=== PATIENT | female | born 1995 | race Caucasian/White ===

== ENCOUNTER 2023-06-23 16:52 | Emergency (ER) | payer OTHER ==
--- OUTSIDE RECORDS SUMMARY | 2023-06-23 16:56 | XMS REPORT | Continuity of Care Document ---
:1995 Author Organization [facility] t Address [address] [facility] [address] [place] [address] Care Team Providers Name Role Phone Asked, No Pcp Primary Care Physician Unavailable Corky Flores Attending Clinician Unavailable Saeed Robles MD Attending Clinician Physician, No Primary or Family Admitting Clinician Unavaila ble Payers Payer Name Policy Type Policy Number Effective Date Expiration Date [facility] [id number] 2016 Choice Medicaid 00:00:00 Problems Condition Condition Condition Status Onset Resolution Last Treating Co mments Source Name Details Category Date Date Treatment Clinician Date Disease Active [facility] [address] [facility] 00:00: [facility]osp[facility] 00 l Allergies, Adverse Reactions, Alerts Allergy Allergy Status Severity Reaction(s) Onset Inactive Treating Comm ents Source Name Type Date Date Clinician No Known DA Active [facility] [place] [facility] No Known DA Active [facility]ie 03-24 [place] 00:[facility] are [facility] Family History Family Member Diagnosis Comments Start Date Stop Date Source Natural mother [facility] Natural mother [facility] Paternal Miscarriages / [facility] Social History Social Habit Start Date Stop Date Quantity Comments Source History of tobacco Cigarette Smoker [facility] Exposure to Not sure [facility] SARS-CoV-2 (event) Hospit al Sexual orientation [facility] History of Social 2021-03-15 2021-03-[address] function 00:00:00 00:00:00 Hospital Alcohol intake 2017-10-21 2017-10-21 Current [facility] 00:00:00 00:00:00 non-drinker of Hospital alcohol (finding) Tobacco use and 2017-10-20 2017-10-20 Smokeless [facility] exposure 00:00:00 00:00:00 tobacco non-user Hospital Cigarettes smoked 2017-10-20 2017-10-[address] current (pack per 00:00:00 00:00:00 Hospita l day) - Reported Sex Assigned At [birth year] [facility] 00:00:00 00:00:00 [facility] Center Smoking Status Start Date Stop Date Source Ex-smoker 2017-10-20 00:00:00 2017-10-20 [facility] Medications Ordered Filled Start Stop Current Ordering Indication Dosage Frequency Signature Comments Components Source Medication Medication Date Date Medication? Clinician (SIG) Name Name dicyclomine 2020- No 20mg Q.5D Take 1 [facility] (BENTYL) 20 03-15- tablet (20 s t mg tablet 00:00: 04:59 mg total) Ho spita 00 :00 by mouth 2 l (two) times a day for 10 days. dicyclomine 2020- No 20mg Q.5D Take 1 [facility] (BENTYL) 20 03-15- tablet (20 s t mg tablet 00:00: 04:59 mg total) Ho spita 00 :00 by mouth 2 l (two) times a day for 10 days. dicyclomine 2020- No 20mg Q.5D Take 1 [facility] (BENTYL) 20 03-15- tablet (20 s t mg tablet 00:00: 04:59 mg total) Ho spita 00 :00 by mouth 2 l (two) times a day for 10 days. ondansetron 2020- No 4mg Q8H Take 1 [facility] ODT (Zofran 03-15 tablet (4 st ODT) 4 MG 00:00: 04:59 mg total) Ho spita disintegrat 00 :00 by mouth l ing tablet every 8 (eight) hours as needed for nausea for up to 7 days. ondansetron No 4mg Q8H Take 1 [facility] ODT (Zofran 03-15 tablet (4 st ODT) 4 MG 00:00: 04:59 mg total) Ho spita disintegrat 00 :00 by mouth l ing tablet every 8 (eight) hours as needed for nausea for up to 7 days. ondansetron No 4mg Q8H Take 1 [facility] ODT (Zofran 03-15 tablet (4 st ODT) 4 MG 00:00: 04:59 mg total) Ho spita disintegrat 00 :00 by mouth l ing tablet every 8 (eight) hours as needed for nausea for up to 7 days. traMADoL 82295 acute [facility] (ULTRAM) 50 03-1511 pain. Take s t mg tablet 00:00: 04:59 1 or 2 Hospi ta 00 :00 tabs every l 6 hours as needed for pain traMADoL 96538 acute [facility] (ULTRAM) 50 03-1511 pain. Take s t mg tablet 00:00: 04:59 1 or 2 Hospi ta 00 :00 tabs every l 6 hours as needed for pain traMADoL 07730 acute [facility] (ULTRAM) 50 03-1511 pain. Take s t mg tablet 00:00: 04:59 1 or 2 Hospi ta 00 :00 tabs every l 6 hours as needed for pain Vital Signs Vital Name Observation Time Observation Value Comments Source Diastolic blood 2021-03-16 02:34:00 78 mm[Hg] [facility] pressure Heart rate 2021-03-16 02:34:00 66 /min [facility] Body temperature 2021-03-16 02:34:00 37.17 Olimpia [facility] Respiratory rate 2021-03-16 02:34:00 19 /min [facility] Oxygen saturation in 2021-03-16 02:34:00 99 /min [facility] Arterial blood by Pulse oximetry Systolic blood 2021-03-16 02:34:00 129 mm[Hg] [facility] pressure Body height 2021-03-15 20:15:00 167.6 cm [facility] Body weight 2021-03-15 20:15:00 90.719 kg [facility] BMI 2021-03-15 20:15:00 32.28 kg/m2 [facility] Procedures Procedure Date / Time Performing Clinician Source Performed XR CHEST 1 VW PORTABLE 2021-03-15 22:39:00 Taras Scott [facility] RESPIRATORY PATHOGEN 2021-03-15 21:59:00 Taras Scott [facility] PANEL WITH COVID-19 RT-PCR HC COMPLETE BLD COUNT 2021-03-15 21:59:00 Taras Scott [facility] W/AUTO DIFF COMPREHENSIVE METABOLIC 2021-03-15 21:59:00 Taras Scott [facility] PANEL TROPONIN 2021-03-15 21:59:00 Taras Scott spital B NATRIURETIC PEPTIDE 2021-03-15 21:59:00 Taras Scott [facility] ESTIMATED GFR 2021-03-15 21:59:00 Taras Scott spital ECG 12-LEAD 2021-03-15 20:33:32 Rashi Scott Ho spital Plan of Care Planned Activity Planned Date Details Comments Source Future Scheduled 2023-06-05 COVID-19 VACCINE [facility] Test 16:31:05 (#1) [code = COVID-19 VACCINE (#1)] Future Scheduled 2023-06-05 Hepatitis C [facility]ital Test 16:31:05 screening (procedure) [code = 852535995] Future Scheduled 2023-06-05 Screening for [facility] Test 16:31:05 malignant neoplasm of cervix (procedure) [code = 858577374] Future Scheduled 2023-06-05 INFLUENZA VACCINE [facility] Test 16:31:05 (#1) [code = INFLUENZA VACCINE (#1)] Future Scheduled 2021-09-10 COVID-19 VACCINE (1) Met [facility] Test 15:22:36 [code = COVID-19 VACCINE (1)] Future Scheduled 2021-09-10 [facility] 15:22:36 screening (procedure) [code = 263437239] Future Scheduled 2021-09-10 [facility] Test 15:22:36 malignant neoplasm of cervix (procedure) [code = 659786487] Future Scheduled 2021-09-10 [facility]ACCINE [facility] Test 15:22:36 [code = INFLUENZA VACCINE] Future Scheduled 2021-09-10 [facility]19 [facility]INE (1[facility] 15:22:36 [code = COVID-19 VACCINE (1)] Future Scheduled 2021-09-10 [facility] 15:22:36 screening (procedure) [code = 176277637] Future Scheduled 2021-09-10 [facility] Test 15:22:36 malignant neoplasm of cervix (procedure) [code = 040291327] Future Scheduled 2021-09-10 [facility]INE [facility] Test 15:22:36 [code = INFLUENZA VACCINE] Future Scheduled 2021-04-[address] [facility] Test 00:00:00 (#1) [code = Medical Center INFLUENZA VACCINE (#1)] Future Scheduled 2021-04-[address] [facility] Test 00:00:00 (#1) [code = Medical Center INFLUENZA VACCINE (#1)] Future Scheduled 2020-08-[address] [facility] Test 00:00:00 (12+) [code = Medical Center DEPRESSION SCREENING (12+)] Future Scheduled 2020-08-[address] [facility] Test 00:00:00 (12+) [code = Medical Center DEPRESSION SCREENING (12+)] Future Scheduled 2020-04-[address] [facility] Test 00:00:00 (#1) [code = Medical Center INFLUENZA VACCINE (#1)] Future Scheduled [address] [facility] Test 00:00:00 malignant neoplasm Medical C enter of cervix (procedure) [code = 530432161] Future Scheduled [address] [facility] Test 00:00:00 malignant neoplasm [facility] enter of cervix (procedure) [code = 366713065] Future Scheduled [address] [facility] Test 00:00:00 malignant neoplasm [facility] C enter of cervix (procedure) [code = 158736458] Future Scheduled 2013 DTAP/TDAP/TD [facility] Test 00:00:00 VACCINES (1 - Tdap) [facility] Center [code = DTAP/TDAP/TD VACCINES (1 - Tdap)] Future Scheduled 2013 DTAP/TDAP/TD [facility] Test 00:00:00 VACCINES (1 - Tdap) Medical Center [code = DTAP/TDAP/TD VACCINES (1 - Tdap)] Future Scheduled [address] [facility] Test 00:00:00 SCREENING [code = Medical Ce nter HEPATITIS C SCREENING] Future Scheduled [address] [facility] Test 00:00:00 SCREENING [code = Medical Ce nter HEPATITIS C SCREENING] Future Scheduled 2006 COVID-19 VACCINE (1) [facility] Test 00:00:00 [code = COVID-[address] VACCINE (1)] Future Scheduled 2006 COVID-19 VACCINE (1) [facility] Test 00:00:00 [code = COVID-[address] VACCINE (1)] Future Scheduled COVID-19 [facility] ([facility] [code = COVID-19 VACCINE (1)] Future Scheduled [facility] screening (procedure) [code = 372105723] Future Scheduled [facility] Test malignant neoplasm of cervix (procedure) [code = 107073759] Future Scheduled INFLUENZA [facility]ACCINE [facility] Test [code = INFLUENZA VACCINE] Encounters Start End Encounter Admission Attending Care Care Encounter Source Date/Time Date/Time Type Type Clinicians Facility Department ID 2021-11-01 [facility] [id number] [place] 22:14:29 [id number] [facility] 2021-03-24 2021-03-24 Emergency EM Mark, HCANW KATINA [id number] [facility] 15:52:00 19:02:00 Corky Stephenson [facility] 2021-03-15 2021-03-15 Emergency Robles, 1.2.840.1 [id number] Method[facility] 17:02:00 21:35:00 Saeed Cruz [address] 3.430.2.7 Hospit a .3.792434 l .8 2021-03-15 2021-03-15 Travel 1.2.840.1 [id number] [id number] [facility] 00:00:00 00:00:[address] 3.430.2.7 0.2.7.3.698 Ho spita .3.152402 084.8 l .8 Results Test Description Test Time Test Comments Results Result Comments Source CBC W/AUTO DIFF 2021-03-24 20:03:00 Test Item Value Reference Range Interpretation Comme nts WHITE BLOOD CELL (test code = WBC) 5.0 x10 3/uL 3.2-11.5 N RED BLOOD CELL (test code = RBC) 5.13 x10(6)/m 3.70-5.10 H HEMOGLOBIN (test code = HGB) 15.1 g/dL 12.0-15.0 H HEMATOCRIT (test code = HCT) 46.1 % 35.7-44.8 H MEAN CELL VOLUME (test code = MCV) 90 fL 80-100 N MEAN CELL HGB (test code = MCH) 29.4 pg 26.2-33.8 N MEAN CELL HGB CONCENTRATION (test code = MCHC) 32.8 g/dL 30.0-34 .0 N RED CELL DISTRIBUTION WIDTH (test code = RDW) 12.1 % 11.3-14. 5 N PLATELET COUNT (test code = PLT) 219 x10 3/uL 130-408 N MEAN PLATELET VOLUME (test code = MPV) 9.4 fL 8.6-12.6 N PLATELET ESTIMATE (test code = PLTEST) ADEQUATE ADEQUATE WBC [id number] 20:03:00 Test Item Value Reference Range Interpretation Comments TOTAL CELLS COUNTED (test code = 100 #CELLS TCC) SEGMENTED NEUTROPHILS (test code 70 % 43-65 H = SEG) LYMPHOCYTE (test code = LYMPH) 22 % 20.5-45.5 N MONOCYTE (test code = MON) 8 % 5.5-11.7 N BAND ABSOLUTE (test code = 0.00 10 3/uL 0.00-0.70 N BAND#) NEUTROPHIL ABSOLUTE (test code = 3.50 10 3/uL 1.6-7.2 N SEG#) LYMPH ABSOLUTE (test code = 1.1 10 3/uL 1.1-4.8 N LYMPH#) ATYPICAL LYMPH ABSOLUTE (test 0.00 10 3/uL 0.00-0.00 N code = ALYMPH#) MONOCYTE ABSOLUTE (test code = 0.40 10 3/uL 0.3-0.8 N MON#) BASOPHIL ABSOLUTE (test code = 0.00 10 3/uL 0.00-0.1 N BASO#) EOSINOPHIL ABSOLUTE (test code = 0.00 10 3/uL 0.00-0.50 N EOS#) METAMYELOCYTE ABSOLUTE (test 0.00 10 3/uL 0.00-0.00 N code = META#) MYELOCYTE ABSOLUTE (test code = 0.00 10 3/uL 0.00-0.00 N MYELO#) PROMYELOCYTE ABSOLUTE (test code 0.00 10 3/uL 0.00-0.00 N = PROM#) BLASTS ABSOLUTE (test code = 0.00 10 3/uL 0.00-0.00 N BLAST#) OTHER CELLS ABSOLUTE (test code 0.00 10 3/uL 0.00-0.00 N = OCT#) RBC MORPHOLOGY COMMENT (test Normal NORMAL code = MOC) PLATELET MORPHOLOGY (test code = Normal NORMAL PLTMORPH) COVID 19 INHOUSE [id number] 18:20:00 Test Item Value Reference Range Interpretation Comments COVID 19 INHOUSE AG POSITIVE Negative A Critica l Value reported (test code = toFirst Name: Digna ODONNELL [id number]) Last Name: [facility] READ BACK AND ALVARO Mercado [id number] on at 1820.Negative r esults should be treat ed as presumptive and confirmed with a molecula r assay, if necessary for patientmanageme nt. Negative result s do not rule out COVID- 19 andshould not b e used as the sole basis for treatment orpat ient management deci sions, including infec tion controldecision s. Negative results should be considered in t hecontext of a patient's recent exposures, hist ory and thepresence of clnical signs and sympt oms consistent withCOVID-19.Sp ecimen Source: Nasopha ryngeal (NUCLEAR ENGINEERING TECHNICIAN) Swab - CT ABD PELVIS [id number] 18:18:00 [facility] 1995 Sex: FPatient Name: LAYNE WALSH Unit No: [id number] EXAMS: CPT: [id number] CT ABD PELVIS W/CONT 01738 EXAM: CT ABDOMEN AND PELVIS WITH CONTRAST DATE: 03/24/2021 5:21 PM INDICATION: llq abd pain COMPARISON: Chest radiograph same day TECHNIQUE:Abdomen and pelvis were scanned utilizing a multidetector helical scanner from the diaphragm to the ischial tuberosities after the administration of IV contrast . 100 cc ofIsovue-300 was given. Coronal and sagittal reformations were obtained. CT dose reduction was performed with automatic exposure control. FINDINGS: LINES and TUBES: None. LOWER THORAX: Patchy groundglassopacities in the visualized lung bases. HEPATOBILIARY: No focal enhancing lesions identified. No biliary ductal dilatation. GALLBLADDER: No calcified gallstones. No pericholecystic inflammation or abnormal wall thickening. SPLEEN: No splenomegaly. PANCREAS: No focal masses or ductal dilatation. ADRENALS: No adrenal nodules. KIDNEYS/URETERS: No hydronephrosis. No stones. No cystic or mass lesions. GI T RACT: No abnormal distention, wall thickening, or evidence of bowel obstruction. The appendix is visualized and normal. PELVIC ORGANS/BLADDER: Unremarkable. LYMPH NODES: No lymphadenopathy. VESSELS: Normal. PERITONEUM / RETROPERITONEUM: No free air, ascites or loculated fluid. BONES: No acute abnormality. SOFT TISSUES: Normal. IMPRESSION: Name: LAYNE WALSH [facility] Phys: VELCLAUDIA.Corky Winslow [address] [place] : 1995 Age: 25 Sex: [place] [id number] Loc: N.ERS Exam Date: 03/24/2021 Status: PRE ER PH: FAX: PAGE 1 Signed Report (CONTINUED) Patient Name: LAYNE WALSH Unit No: [id number] EXAMS: CPT: [id number] CT ABD PELVIS W/CONT 78322 (Continued) 1. No acute findings in the abdomen and pelvis. 2. Patchy groundglass opacities in the visualized lung bases suggestive of multifocal pneumonia. This is not specific for COVID19, but is an imaging manifestation of active COVID19 infection. at 1818 Reported and signed by: Flavia Mendoza MD CC: Corky Flores MD Technologist: Sun Cotton CTDI: 29.11 DLP: 1541.82Trscr Dt/Tm: 03/24/2021 (1817) by:[email or web address] Orig Print D/T: S: 03/24/2021 (1820) BATCH NO: N/A Name: LAYNE WALSH [facility] Phys: [email or web address] - Corky Flores M [address] [facility] : 1995 Age: 25 Sex: [place] [id number] Loc: N.ERS Exam Date: 03/24/2021 Status: PRE ER PH: FAX: PAGE 2 Signed ReportBASIC METABOLIC [id number] 17:52:00 Test Item Value Reference Range Interpretation Comments SODIUM (test code 134 mmol/L 135-145 L = NA) POTASSIUM (test 4.2 mmol/L 3.6-5.0 N code = K) CHLORIDE (test 101 mmol/L 101-111 N code = CL) CARBON DIOXIDE 20 mmol/L 21-31 L (test code = CO2) GLUCOSE (test code 133 mg/dl 70-100 H = GLU) BLOOD UREA 8 mg/dl 6-20 N NITROGEN (test code = BUN) GLOMERULAR >=60 max >60 The estimated FILTRATION RATE estimate glomerular (test code = GFR) filtration rate is computed usingpatient ra ce, age (>18), sex, and serum creatinin e. If anyof the neede d data elements a re missing the Laboratory ariana ot compute an estimation of t he glomerular filtration rate . CREATININE (test 0.86 mg/dL 0.44-1.03 N code = CREAT) CALCIUM (test code 8.4 mg/dL 8.5-10.5 L = CA) LIVER FUNCTION [id number] 17:52:00 Test Item Value Reference Range Interpretation Comments TOTAL PROTEIN (test code = PROT) 7.7 g/dL 6.7-8.2 N ALBUMIN (test code = ALB) 4.1 g/dL 3.2-5.5 N BILIRUBIN TOTAL (test code = BILT) 1.00 mg/dL 0.2-1.3 N BILIRUBIN DIRECT (test code = 0.3 mg/dL 0.00-0.20 H BILD) SGOT/AST (test code = AST) 103 U/L 10-42 H SGPT/ALT (test code = ALT) 74 U/L 10-60 H ALKALINE PHOSPHATASE (test code = 88 U/L 42-121 N ALKP) [id number] 17:52:00 Test Item Value Reference Range Interpretation Comments LIPASE (test code = LIP) 26 IU/L 22-51 N HCG SERUM [id number] 17:48:00 Test Item Value Reference Range Interpretation Comments HCG SERUM QUAL NEGATIVE NEGATIVE This is a clara litative (test code = HCGQL) screenin g test.The quantitative Bh cg may be helpful.Weakly positive results should be repeated in 48 hours. BASIC METABOLIC [id number] 17:48:00 Test Item Value Reference Range Interpretation Comments SODIUM (test code 134 mmol/L 135-145 L = NA) POTASSIUM (test 4.2 mmol/L 3.6-5.0 N code = K) CHLORIDE (test 101 mmol/L 101-111 N code = CL) CARBON DIOXIDE 20 mmol/L 21-31 L (test code = CO2) GLUCOSE (test code 133 mg/dl 70-100 H = GLU) BLOOD UREA 8 mg/dl 6-20 N NITROGEN (test code = BUN) GLOMERULAR >=60 max >60 The estimated FILTRATION RATE estimate glomerular (test code = GFR) filtration rate is computed usingpatient ra ce, age (>18), sex, and serum creatinin e. If anyof the neede d data elements a re missing the Laboratory ariana ot compute an estimation of t he glomerular filtration rate . CREATININE (test 0.86 mg/dL 0.44-1.03 N code = CREAT) CALCIUM (test code 8.4 mg/dL 8.5-10.5 L = CA) LIVER FUNCTION [id number] 17:48:00 Test Item Value Reference Range Interpretation Comments TOTAL PROTEIN (test code = PROT) 7.7 g/dL 6.7-8.2 N ALBUMIN (test code = ALB) 4.1 g/dL 3.2-5.5 N BILIRUBIN TOTAL (test code = BILT) mg/dL 0.2-1.3 BILIRUBIN DIRECT (test code = BILD) mg/dL 0.00-0.20 SGOT/AST (test code = AST) U/L 10-42 SGPT/ALT (test code = ALT) U/L 10-60 ALKALINE PHOSPHATASE (test code = U/L 42-121 ALKP) [id number] 17:48:00 Test Item Value Reference Range Interpretation Comments LIPASE (test code = LIP) 26 IU/L 22-51 N [id number] 17:46:00 Test Item Value Reference Range Interpretation Comments TROPONIN-I (test code = TROPI) <0.020 ng/mL 0.000-0.034 N LACTIC [id number] 17:29:00 Test Item Value Reference Range Interpretation Comments LACTIC ACID (test code = LACT) 1.0 mmol/L 0.5-2.0 N - XR CHEST 1 [id number] 17:18:00 [facility] 1995 Sex: FPatient Name: LAYNE WALSH Unit No: [id number] EXAMS: CPT: [id number] XR CHEST 1 V 94510 Clinical History: Code Sepsis. Exam: - XR CHEST 1 V Technique: Portable AP upright chest radiograph Comparison: None. Findings: Mildly decreased lung volumes. Mild patchy reticular and groundglass opacities of the mid to lower lung zones bilaterally, right greater than left. Costophrenic angles are sharp. No pneumothorax seen. The cardiomediastinal silhouette is within normal limits. The visualized osseous structures are unremarkable. Impression: Slightly suboptimal inspiratory effort with mild reticular and groundglass opacities of the mid and lower lung zones bilaterally demonstrating a basilar gradient. Findings are suspicious for an atypical infectious process such as seen with COVID-19. at 1718 Reported and signed by: Laila Jones MD CC: Mary Ornelas NP Technologist: Criselda Frias Time: DAP (Gy m2): Air Kerma (mGy): Trscr Dt/Tm: 03/24/2021 (171) by:[email or web address] Orig Print D/T: S: 03/24/2021 (172) BATCH NO: N/A Name: LAYNE WALSH [facility] ED Phys: Mary Moraes NP [address] [facility] : 1995 Age: 25 Sex: [place] [address] Loc: N.ERS Exam Date: 03/24/2021 Status: PRE ER PH: FAX: PAGE 1 Signed ReportCBC W/AUTO [id number] 17:14:00 Test Item Value Reference Range Interpretation Comments WHITE BLOOD CELL (test code = 5.0 x10 3/uL 3.2-11.5 N WBC) RED BLOOD CELL (test code = 5.13 x10(6)/m 3.70-5.10 H RBC) HEMOGLOBIN (test code = HGB) 15.1 g/dL 12.0-15.0 H HEMATOCRIT (test code = HCT) 46.1 % 35.7-44.8 H MEAN CELL VOLUME (test code = 90 fL 80-100 N MCV) MEAN CELL HGB (test code = MCH) 29.4 pg 26.2-33.8 N MEAN CELL HGB CONCENTRATION 32.8 g/dL 30.0-34.0 N (test code = MCHC) RED CELL DISTRIBUTION WIDTH 12.1 % 11.3-14.5 N (test code = RDW) PLATELET COUNT (test code = 219 x10 3/uL 130-408 N PLT) MEAN PLATELET VOLUME (test code 9.4 fL 8.6-12.6 N = MPV) WBC [id number] 17:14:00 Test Item Value Reference Range Interpretation Comments TOTAL CELLS COUNTED (test code = TCC) #CELLS RBC MORPHOLOGY COMMENT (test code = NORMAL MOC) PLATELET MORPHOLOGY (test code = NORMAL PLTMORPH) CBC W/AUTO [id number] 17:14:00 Test Item Value Reference Range Interpretation Comments WHITE BLOOD CELL (test code = 5.0 x10 3/uL 3.2-11.5 N WBC) RED BLOOD CELL (test code = 5.13 x10(6)/m 3.70-5.10 H RBC) HEMOGLOBIN (test code = HGB) 15.1 g/dL 12.0-15.0 H HEMATOCRIT (test code = HCT) 46.1 % 35.7-44.8 H MEAN CELL VOLUME (test code = 90 fL 80-100 N MCV) MEAN CELL HGB (test code = MCH) 29.4 pg 26.2-33.8 N MEAN CELL HGB CONCENTRATION 32.8 g/dL 30.0-34.0 N (test code = MCHC) RED CELL DISTRIBUTION WIDTH 12.1 % 11.3-14.5 N (test code = RDW) PLATELET COUNT (test code = 219 x10 3/uL 130-408 N PLT) MEAN PLATELET VOLUME (test code 9.4 fL 8.6-12.6 N = MPV) WBC [id number] 17:14:00 Test Item Value Reference Range Interpretation Comments TOTAL CELLS COUNTED (test code = TCC) #CELLS RBC MORPHOLOGY COMMENT (test code = NORMAL MOC) PLATELET MORPHOLOGY (test code = NORMAL PLTMORPH) CBC W/AUTO [id number] 17:09:00 Test Item Value Reference Range Interpretation Comments WHITE BLOOD CELL (test code = 5.0 x10 3/uL 3.2-11.5 N WBC) RED BLOOD CELL (test code = 5.13 x10(6)/m 3.70-5.10 H RBC) HEMOGLOBIN (test code = HGB) 15.1 g/dL 12.0-15.0 H HEMATOCRIT (test code = HCT) 46.1 % 35.7-44.8 H MEAN CELL VOLUME (test code = 90 fL 80-100 N MCV) MEAN CELL HGB (test code = MCH) 29.4 pg 26.2-33.8 N MEAN CELL HGB CONCENTRATION 32.8 g/dL 30.0-34.0 N (test code = MCHC) RED CELL DISTRIBUTION WIDTH % 11.3-14.5 (test code = RDW) PLATELET COUNT (test code = x10 3/uL 130-408 PLT) MEAN PLATELET VOLUME (test code 9.4 fL 8.6-12.6 N = MPV) NEUTROPHIL % (test code = NT%) % 40.0-70.0 LYMPHOCYTE % (test code = LY%) % 20-40 MONOCYTE % (test code = MO%) % 1-10 EOSINOPHIL % (test code = EO%) % 0.0-5.0 BASOPHIL % (test code = BA%) % 0.0-1.0 NUCLEATED RBC % (test code = % 0.0-0.9 NRBC%) NEUTROPHIL # (test code = NT#) x10 3/uL 1.6-7.2 LYMPHOCYTE # (test code = LY#) x10 3/uL 1.1-2.7 MONOCYTE # (test code = MO#) x10 3/uL 0.3-0.8 EOSINOPHIL # (test code = EO#) x10 3/uL 0.0-0.5 ECG 12 [id number] 02:00:58 Test Item Value Reference Range Interpretation Comments Ventricular rate (test code = 253) Atrial rate (test code = 255) W[place] interval (test code = 266) QRSD interval (test code = 260) QT interval (test code = 264) QTC interval (test code = 265) P axis 1 (test code = 267) QRS axis 1 (test code = 268) T wave axis (test code = 270) EKG impression (test Normal sinus code = 273) rhythm-Normal ECG-No previous ECGs available-Electronica lly Signed By Joe Franklin MD ([id number]) on 03/17/2021 9:00:55 PM [facility] 12 [id number] 02:00:58 Test Item Value Reference Range Interpretation Comments Ventricular rate (test code = 253) Atrial rate (test code = 255) W[place] interval (test code = 266) QRSD interval (test code = 260) QT interval (test code = 264) QTC interval (test code = 265) P axis 1 (test code = 267) QRS axis 1 (test code = 268) T wave axis (test code = 270) EKG impression (test Normal sinus code = 273) rhythm-Normal ECG-No previous ECGs available-Electronica lly Signed By Joe Franklin MD ([id number]) on 03/17/2021 9:00:55 PM [facility] 12 [id number] 02:00:58 Test Item Value Reference Range Interpretation Comments Ventricular rate (test code = 253) Atrial rate (test code = 255) W[place] interval (test code = 266) QRSD interval (test code = 260) QT interval (test code = 264) QTC interval (test code = 265) P axis 1 (test code = 267) QRS axis 1 (test code = 268) T wave axis (test code = 270) EKG impression (test Normal sinus code = 273) rhythm-Normal ECG-No previous ECGs available-Electronica lly Signed By Joe Franklin MD ([id number]) on 03/17/2021 9:00:55 PM [facility] 1 [id number] 22:47:59EXAMINATION: XR CHEST 1 PORTABLE CLINICAL HISTORY: cp COMPARISON: None. FINDINGS: Lines and tubes: None. Cardiomediastinal silhouette: Unremarkable. Lungs and pleura: No consolidation. No significant pleural effusion. No significant pneumothorax. Bones: Unremarkable. Upper abdomen and soft tissues:Unremarkable. IMPRESSION: No acute pulmonary pathology. [id number] Interface, Radiology Results - 03/15/2021 5:51 PM CDT EXAMINATION: XR CHEST 1 PORTABLECLINICAL HISTORY: cpCOMPARISON: None.FINDINGS: Lines and tubes: None.Cardiomediastinal silhouette: Unremarkable.Lungs and pleura: No consolidation. No significant pleural effus ion. No significant pneumothorax.Bones: Unremarkable.Upper abdomen and soft tissues: Unremarkable.IMPRESSION:No acute pulmonary pathology.[id number] [facility], [facility]ERV[facility], 2 OR 3 [id number] 11:44:00Reason for Exam:->Carpal tunnel syndrome, right upper limbFINAL REPORT CERVICAL SPINE THREE VIEWS History provided: Right upper limb pain Cervical vertebra are in normal alignment with preservation of vertebral body heights and disc spaces. Minimal reversal of normal curvature consistent with muscle spasm. Signed: Yehuda Rosario MDReport Verified Date/Time: 04/08/2019 11:44:41 Reading Location: [facility] Diagnostic Imaging Reading Room - [facility] [phone]
[2023-06-23] MEDS ORDERED: BENZONATATE 100 MG CAP PO ONE (17:27)
[2023-06-23 18:01] LABS: SARS-CoV-2 Antigen Rapid Res Negative (Negative)
--- NOTE | 2023-06-23 18:06 | ER ---
Nurse's Notes [facility] Name: Nica Slater Age: 27 yrs Sex: Female : 1995 Arrival Date: 06/23/2023 Time: 16:52 Bed 7 Private MD: Diagnosis: Influenza due to other identified influenza virus with other respiratory manifestations;Otitis media, unspecified, bilateral Presentation: 06/23 17:02 Coronavirus screen: Vaccine status: Patient reports being unvaccinated. Client denies cm10 travel out of the [place] in the last 14 days. Ebola Screen: Patient denies travel to an Ebola-affected area in the 21 days before illness onset. No symptoms or risks identified at this time. Initial Sepsis Screen: Does the patient meet any 2 criteria? No. Patient's initial sepsis screen is negative. Does the patient have a suspected source of infection? No. Patient's initial sepsis screen is negative. Risk Assessment: Do you want to hurt yourself or someone else? Patient reports no desire to harm self or others. Onset of symptoms was June 23, 2023. 17:02 Method Of Arrival: Ambulatory cm10 17:02 Acuity: DOROTHY 4 cm10 17:03 Chief complaint: Patient states: sore throat, chest pain, cough, and right ear pain X3 cm10 days. Pt states that her kids were recently sick. Historical: - Allergies: 17:03 Tylenol-Codeine; cm10 - PMHx: 17:03 None; cm10 - PSHx: 17:03 None; cm10 - Immunization history:: Adult Immunizations unknown. - Social history:: Smoking status: Patient denies any tobacco usage or history of. Screenin:15 [facility] ED Fall Risk Assessment (Adult) History of falling in the last 3 months, ko1 including since admission No falls in past 3 months (0 pts) Confusion or Disorientation No (0 pts) Intoxicated or Sedated No (0 pts) Impaired Gait No (0 pts) Mobility Assist Device Used No (0 pt) Altered Elimination No (0 pt) Score/Fall Risk Level 0 - 2 = Low Risk Oriented to surroundings, Maintained a safe environment, Educated pt \T\ family on fall prevention, incl call for assistance when getting out of bed, Assessed \T\ reinforced patient's understanding of fall precautions, Provided non-skid footwear, Hourly rounding (assess needs \T\ fall precautionary measures) done, Used ambulatory aids as needed (educated on \T\ assisted with). Abuse screen: Denies threats or abuse. Denies injuries from another. Nutritional screening: No deficits noted. Tuberculosis screening: No symptoms or risk factors identified. Assessment: 17:15 General: Appears in no apparent distress. ill, Behavior is calm, cooperative, ko1 appropriate for age. Pain: Complains of pain in headache, generalized body aches. Neuro: No deficits noted. Cardiovascular: No deficits noted. Respiratory: Reports cough that is non-productive. GI: No deficits noted. : No deficits noted. EENT: Reports nasal congestion nasal discharge. Derm: No deficits noted. Musculoskeletal: Reports generalized body aches. Vital Signs: 17:02 BP 122 / 64; Pulse 96; Resp 18; Temp 98.2; Pulse Ox 99% ; Weight 104.33 kg; Height 5 cm10 ft. 6 in. ; Pain 10/10; 18:17 BP 128 / 68; Pulse 88; Resp 16; Pulse Ox 99% ; ko1 17:02 Body Mass Index 37.12 (104.33 kg, 167.64 cm) cm10 17:02 Pain Scale: Adult cm10 ED Course: 16:55 Patient arrived in ED. kj1 16:56 Charly Ovalles PA is PHCP. cp 16:56 Markus Oliva MD is Attending Physician. cp 16:57 Kaylee Hernandez, LUCAS is Primary Nurse. ko1 17:03 Triage completed. cm10 17:03 Arm band placed on Patient placed in an exam room, on a stretcher. cm10 17:12 Influenza Screen (a \T\ B) Sent. tm3 17:12 Strep Sent. tm3 17:12 SARS-COV-2 Antigen Rapid Sent. tm3 17:15 Patient has correct armband on for positive identification. Bed in low position. Call ko1 light in reach. Provided Education on: na. Pulse ox on. NIBP on. Door closed. Noise minimized. Lights dimmed. 17:31 XRAY Chest Pa And Lat (2 Views) In Process Unspecified. EDMS 18:17 No provider procedures requiring assistance completed. Patient did not have IV access ko1 during this emergency room visit. Administered Medications: 17:19 Drug: Tessalon Perle PO 200 mg PO once Route: PO; ko1 18:10 Follow up: Response: No adverse reaction hb 17:19 Drug: Ibuprofen PO 800 mg PO once Route: PO; ko1 18:10 Follow up: Response: No adverse reaction hb Medication: 17:15 VIS not applicable for this client. ko1 Outcome: 18:05 Discharge ordered by . cp 18:17 Discharged to home ambulatory, ko1 18:17 Condition: stable 18:17 Discharge instructions given to patient, Instructed on discharge instructions, follow up and referral plans. medication usage, Demonstrated understanding of instructions, follow-up care, medications, 18:18 Prescriptions given X 4, ko1 18:21 Patient left the ED. hb Signatures: Dispatcher [employer] EDMS Macho Lagunas tm3 Charly Ovalles PA PA cp Baxter, Heather, RN RN Maday Dos Santos1 Kaylee Hernandez RN RN ko1 Vidhya Wade RN RN cm10
--- NOTE | 2023-06-23 18:06 | EDPHYS ---
Physician Documentation [facility] Name: Nica Slater Age: 27 yrs Sex: Female : 1995 Arrival Date: 06/23/2023 Time: 16:52 Bed 7 Private MD: ED Physician Markus Oliva HPI: 06/23 17:09 This 27 yrs old Female presents to ER via Ambulatory with complaints of Flu Symptoms. cp 17:09 The patient or guardian reports cough, that is intermittent. cp 17:09 Onset: The symptoms/episode began/occurred this past Thursday night. cp 17:09 Associated signs and symptoms: Pertinent positives: chest pain, with cough, earache, cp sore throat, body aches, this patient has no pertinent positive symptoms Pertinent negatives: diarrhea, vomiting. 17:09 Severity of symptoms: in the emergency department the symptoms are unchanged despite cp home interventions. Historical: - Allergies: 17:03 Tylenol-Codeine; cm10 - PMHx: 17:03 None; cm10 - PSHx: 17:03 None; cm10 - Immunization history:: Adult Immunizations unknown. - Social history:: Smoking status: Patient denies any tobacco usage or history of. ROS: 17:15 Constitutional: Positive for body aches, Negative for fever, poor PO intake, cp 17:15 Eyes: Negative for injury, pain, redness, and discharge, cp 17:15 ENT: Positive for sore throat, Negative for drainage from ear(s), ear pain, difficulty swallowing, difficulty handling secretions, 17:15 Cardiovascular: Negative for chest pain, 17:15 Respiratory: Positive for cough, with no reported sputum, Negative for shortness of breath, wheezing, 17:15 Abdomen/GI: Negative for abdominal pain, nausea and vomiting, diarrhea, constipation, 17:15 : Negative for urinary symptoms, 17:15 Neuro: Positive for headache, Negative for weakness, 17:15 All other systems are negative, Exam: 17:20 Constitutional: The patient appears in no acute distress, alert, awake, non-toxic, well cp developed, well nourished, overweight 17:20 Head/Face: Normocephalic, atraumatic. cp 17:20 Eyes: Periorbital structures: appear normal, Conjunctiva: normal, no exudate, no injection, Sclera: no appreciated abnormality, Lids and lashes: appear normal, bilaterally, 17:20 ENT: External ear(s): are unremarkable, Ear canal(s): are normal, clear, TM's: bulging, is not appreciated, bilaterally, erythema, that is moderate, bilaterally, Nose: is normal, Mouth: Lips: moist, Oral mucosa: moist, Posterior pharynx: Airway: no evidence of obstruction, patent, Tonsils: no enlargement, no exudate, swelling, is not appreciated, erythema, that is mild, exudate, is not appreciated, 17:20 Neck: ROM/movement: is normal, is supple, no meningismus, no nuchal rigidity, 17:20 Chest/axilla: Inspection: normal, 17:20 Cardiovascular: Rate: normal, Rhythm: regular, cp 17:20 Respiratory: the patient does not display signs of respiratory distress, Respirations: normal, no use of accessory muscles, no retractions, labored breathing, is not present, Breath sounds: decreased breath sounds, are not appreciated, stridor, is not appreciated, + upper airway congestion. wheezing: is not appreciated, 17:20 Abdomen/GI: Inspection: obese Palpation: abdomen is soft and non-tender, in all quadrants, 17:20 Skin: no rash present. 17:20 Neuro: Orientation: to person, place \T\ time. Mentation: is normal, Motor: moves all cp fours, strength is normal, Sensation: is normal, Vital Signs: 17:02 BP 122 / 64; Pulse 96; Resp 18; Temp 98.2; Pulse Ox 99% ; Weight 104.33 kg; Height 5 cm10 ft. 6 in. ; Pain 10/10; 18:17 BP 128 / 68; Pulse 88; Resp 16; Pulse Ox 99% ; ko1 17:02 Body Mass Index 37.12 (104.33 kg, 167.64 cm) cm10 17:02 Pain Scale: Adult cm10 MDM: 16:57 Patient medically screened. cp 17:20 Differential diagnosis: bronchitis, flu, pneumonia, strep throat. cp 17:47 Independent interpretation of the following test(s) in the Emergency Department X-Ray: cp My interpretation is images of chest negative for focal pneumonia. 18:05 Data reviewed: vital signs, nurses notes, lab test result(s), and as a result, I will cp discharge patient. 18:05 I considered the following discharge prescriptions or medication management in the cp emergency department Medications were administered in the Emergency Department. See MAR. Counseling: I had a detailed discussion with the patient and/or guardian regarding the historical points, exam findings, and any diagnostic results supporting the discharge/admit diagnosis, lab results, to return to the emergency department if symptoms worsen or persist or if there are any questions or concerns that arise at home. Response to treatment: the patient's symptoms have mildly improved after treatment, and as a result, I will discharge patient. 06/23 17:05 Order name: Strep cp 06/23 17:43 Interpretation: Reviewed. 06/23 17:05 Order name: Influenza Screen (a \T\ B); Complete Time: 17:43 cp 06/23 17:43 Interpretation: Reviewed. 06/23 17:05 Order name: SARS-COV-2 Antigen Rapid 06/23 17:42 Order name: Throat Culture EDMS 06/23 17:05 Order name: XRAY Chest Pa And Lat (2 Views) cp Administered Medications: 17:19 Drug: Tessalon Perle PO 200 mg PO once Route: PO; ko1 18:10 Follow up: Response: No adverse reaction hb 17:19 Drug: Ibuprofen PO 800 mg PO once Route: PO; ko1 18:10 Follow up: Response: No adverse reaction hb Disposition Summary: 06/23/23 18:05 Discharge Ordered Notes: Location: Home cp Problem: new cp Symptoms: have improved cp Condition: Stable cp Diagnosis - Influenza due to other identified influenza virus with other respiratory cp manifestations - Otitis media, unspecified, bilateral cp Followup: cp - With: Private Physician - When: 2 - 3 days - Reason: Worsening of condition Discharge Instructions: - Discharge Summary Sheet cp - Otitis Media, Adult cp - Influenza, Adult cp Forms: - Medication Reconciliation Form cp - Thank You Letter cp - Antibiotic Education cp - Prescription Opioid Use cp - Patient Portal Instructions cp - Leadership Thank You Letter cp - Work release form hb Prescriptions: - Bromfed DM 2-30-10 mg/5 mL Oral syrup - administer 10 milliliter ORAL route every 6 hours as needed for cold symptoms; cp 240 milliliter; Refills: 0, Product Selection Permitted - Augmentin 875-125 mg Oral Tablet - take 1 tablet ORAL route every 12 hours for 10 days; 20 tablet; Refills: 0, cp Product Selection Permitted - Ibuprofen 800 mg Oral Tablet - take 1 tablet ORAL route every 8 hours As needed take with food; 30 tablet; cp Refills: 0, Product Selection Permitted - Tamiflu 75 mg Oral capsule - take 1 tablet ORAL route every 12 hours for 5 days; 10 tablet; Refills: 0, cp Product Selection Permitted Addendum: 06/26/2023 20:12 I was immediately available for consultation during this patient's visit. I did not e c2 personally see the patient or guide the patient's care.. Signatures: Dispatcher [employer] EDMS Charly Ovalles PA PA cp Kaylee Hernandez RN RN ko1 Vidhya Wade RN RN cm10 Markus Oliva MD MD ec2 Lili Giles RN Corrections: (The following items were deleted from the chart) 06/24 03:01 06/23 17:09 Associated signs and symptoms: Pertinent positives: chest pain, with cough, cp fever, sore throat, body aches, this patient has no pertinent positive symptoms cp
--- NOTE | 2023-06-23 18:19 | RAD REPORT ---
EXAM DESCRIPTION: RAD - Chest Pa And Lat (2 Views) - 06/23/2023 5:30 pm CLINICAL HISTORY: COUGH COMPARISON: No comparisons TECHNIQUE: PA and lateral views of the chest were obtained. FINDINGS: The lungs are clear. Heart size is normal and central vasculature is within normal limits. No pleural effusion or pneumothorax seen. No acute bony finding noted. IMPRESSION: No acute cardiopulmonary process.
[2023-06-23 18:25] VITALS: TEMP 98.2; O2SAT 99
[2023-06-23 18:27] VITALS: BP 128/68
== END 2023-06-23 18:21 | disposition home or self-care (01) ==
LOC: ER 16:52
DX: J10.1 Influenza due to other identified influenza virus with other respiratory manifestations (principal); Z11.52 Encounter for screening for COVID-19; Z88.5 Allergy status to narcotic agent
CPT/HCPCS: 36415; 71046; 87070; 87081; 87804; 87811; 99284

== ENCOUNTER 2023-11-04 23:13 | Emergency (ER) | payer OTHER ==
[2023-11-04] MEDS ORDERED: NA CHLORIDE 0.9% 1,000 ML ONE (23:41)
[2023-11-04] MEDS ORDERED: ONDANSETRON 4 MG/2 ML VIAL ONE (23:41)
[2023-11-04] MEDS ORDERED: KETOROLAC 30 MG/ML INJ ONE (23:41)
[2023-11-05 00:55] LABS: Absolute Basophils 0.1 K/uL (0-0.5); Absolute Eosinophils 0.2 K/uL (0-0.5); Absolute Neutrophil 6.7 K/uL (1.8-8.0); Basophils % 1.1 % (0-1.3); Eosinophils % 1.6 % (0-4.4); Hematocrit 37.2 % (36.0-45.0); Hemoglobin 12.5 g/dL (12.0-15.0); Lymphocytes % 27.6 % (15.3-44.8); MCH 29.6 pg (27.0-35.0); MCHC 33.6 g/dL (32.0-36.0); MCV 88.2 fL (80-100); MPV 7.9 fL (7.6-11.3); Monocytes % 8.8 % (3.3-12.3); Neutrophils % 60.9 % (41.7-73.7); Nucleated Red Blood Cells % 0.1 % (0-0); Platelets 311 thou/uL (152-406); RBC Red Blood Cell Count 4.21 M/uL (3.86-4.86); Red Cell Distribution Width 12.7 % (12.1-15.2)
[2023-11-05 01:05] LABS: Albumin 3.5 g/dL (3.4-5.0); Albumin/Globulin Ratio 0.9 (1.1-1.8); Anion Gap 10.7 mEq/L (5.0-15.0); Bilirubin Total 0.4 mg/dL (0.2-1.0); Potassium 3.7 mEq/L (3.5-5.1); Protein, Total 7.5 g/dL (6.4-8.2)
[2023-11-05 02:08] LABS: Specific Gravity > 1.030 (1.005-1.030)
[2023-11-05 02:09] LABS: Specific Gravity > 1.030 (1.005-1.030); Urine Bacteria None Seen /HPF (<20); Urine Bilirubin NEGATIVE (Negative); Urine Blood Negative (Negative); Urine Clarity Turbid (Clear); Urine Color Yellow (Yellow); Urine Culture Reflex Order NOT NEEDED; Urine Glucose NEGATIVE (Negative); Urine Ketones TRACE (Negative); Urine Microscopic Reflex YN ORDER UMIC; Urine Mucus 1+ /HPF (None Seen); Urine Nitrite NEGATIVE (Negative); Urine Protein TRACE (Negative); Urine RBC <5 /HPF (None Seen); Urine Urobilinogen Normal (Normal); Urine WBC <5 /HPF (<5); Urine pH 5.5 (5.0-7.0)
[2023-11-05] MEDS ORDERED: ONDANSETRON 4 MG/2 ML VIAL ONE (02:13)
[2023-11-05] MEDS ORDERED: MORPHINE 4 MG/ML SYR ONE (02:14)
--- NOTE | 2023-11-05 03:18 | EDPHYS ---
Physician Documentation [facility] Name: Nica Slater Age: 28 yrs Sex: Female : 1995 Arrival Date: 11/04/2023 Time: 23:13 Bed 6 Private MD: ED Physician César Douglas HPI: 11/03 23:35 This 28 yrs old Female presents to ER via Ambulatory with complaints of Pelvic Pain, kb Rectal Pain. 23:35 Pt is a 28 year old female who presents with left lower abd/pelvic pain that radiates kb to rectum. Reports nausea and diarrhea. Denies vomiting, fever, vaginal bleeding/discharge. State pain started one week ago and isn't getting better. . Historical: - Allergies: 23:24 Tylenol-Codeine; vc1 - PMHx: 23:24 None; vc1 - PSHx: 23:24 umbilical hernia; vc1 - Immunization history:: Adult Immunizations up to date. - Social history:: Smoking status: Reported history of juuling and/or vaping. ROS: 23:35 Constitutional: As per HPI kb Exam: 23:35 Constitutional: This is a well developed, well nourished patient who is awake, alert, kb and in no acute distress. Head/Face: Normocephalic, atraumatic. ENT: Moist Mucous membranes Cardiovascular: Regular rate Respiratory: Respirations even and unlabored. No increased work of breathing. Talking in full sentences Skin: Warm, dry with normal turgor. Normal color. MS/ Extremity: Pulses equal, no cyanosis. Neurovascular intact. Full, normal range of motion. Neuro: Awake and alert, GCS 15, oriented to person, place, time, and situation. Moves all extremities. Normal gait. 23:35 Abdomen/GI: Inspection: abdomen appears normal, Bowel sounds: normal, Palpation: soft, in all quadrants, mild abdominal tenderness, in the left lower quadrant, Vital Signs: 23:22 BP 145 / 75; Pulse 108; Resp 18; Temp 98.9; Pulse Ox 98% on R/A; Weight 104.33 kg; vc1 Height 5 ft. 6 in. ; Pain 8/10; 23:49 BP 151 / 50; Pulse 86; Pulse Ox 96% on R/A; Pain 8/10; tm6 11/04 01:56 BP 186 / 124; Pulse 83; Pulse Ox 99% on R/A; Pain 8/10; tm6 03:08 BP 139 / 105; Pulse 77; Pulse Ox 98% on R/A; Pain 8/10; tm6 03:30 BP 149 / 93; Pulse 78; Resp 19; Temp 97.5(TE); Pulse Ox 100% on R/A; Pain 6/10; tm6 11/03 23:22 Body Mass Index 37.12 (104.33 kg, 167.64 cm) vc1 11/03 23:22 Pain Scale: Adult vc1 23:49 Pain Scale: Adult tm6 11/04 01:56 Pain Scale: Adult tm6 03:08 Pain Scale: Adult tm6 03:30 Pain Scale: Adult tm6 MDM: 11/03 23:23 Patient medically screened. kb 23:35 Data reviewed: vital signs, nurses notes. Test considered but Not performed: Ultrasound kb transvaginal US considered but pt refuses at this time. 11/04 00:32 Transition of care: After a detail discussion of the patient's case, care is kb transferred to César Douglas MD. 00:32 ED course: Pt refuses rectal exam. kb 03:09 ED course: EXAM DESCRIPTION: Abdomen Pelvis W Contrast CLINICAL HISTORY: ABD PAIN sp4 COMPARISON: None Available TECHNIQUE: Contiguous axial images of the abdomen and pelvis were obtained after the administration of intravenous contrast followed by reconstruction images.This exam was performed according to our departmental dose-optimization program, which includes automated exposure control, adjustment of the mA and/or kV according to patient size and/or use of iterative reconstruction technique. FINDINGS: There is a 2.6 cm cyst within the left adnexa compatible with an ovarian cyst. No further follow-up recommended. There is a small 8.3 mm fatty lesion within the medial aspect of the right kidney which could represent a small angiomyolipoma. The liver, spleen, pancreas and kidneys are otherwise within normal limits. There is no hydronephrosis or renal stones. The gallbladder is unremarkable by CT criteria. Adrenal glands are within normal limits. Aorta is of normal caliber and tapering. There is no free fluid in the abdomen or pelvis. There is no bowel obstruction. There is no stranding of the mesenteric fat to suggest an inflammatory response. The appendix is within normal limits. There is no pericecal inflammation. IMPRESSION: 1. No acute intra-abdominal abnormality. 2. 2.6 cm left ovarian simple-appearing cyst. No follow-up imaging is recommended. Reference: JACR 2019;17(8):[id number]. 11/03 23:27 Order name: CBC with Diff; Complete Time: 01:23 kb 11/03 23:27 Order name: CMP; Complete Time: 01:23 kb 11/03 23:27 Order name: Lipase; Complete Time: 01:23 kb 11/03 23:27 Order name: Test, Urine; Complete Time: 02:30 kb 11/03 23:27 Order name: Urinalysis w/ reflexes; Complete Time: 02:30 kb 11/03 23:27 Order name: CT Abd/Pelvis - IV Contrast Only kb 11/03 23:27 Order name: IV Saline Lock; Complete Time: 23:49 kb 11/03 23:27 Order name: Labs collected and sent; Complete Time: 23:49 kb 11/04 00:19 Order name: Labs - recollect needed: Green and purple top; Complete Time: 00:38 cm10 Administered Medications: 11/03 23:48 Drug: NS 0.9% IV 1000 ml IV at 1 bolus Per protocol; 1000 mL bolus Route: IV; Rate: 1 tm6 bolus; Site: right antecubital; 11/04 03:31 Follow up: Response: No adverse reaction; IV Status: Completed infusion; IV Intake: tm6 1000ml 11/03 23:48 Drug: Ondansetron IVP 4 mg IVP once; over 2 minutes Route: IVP; Site: right antecubital;tm6 23:49 Drug: TORadol - Ketorolac IVP 15 mg IVP once Route: IVP; Site: right antecubital; tm6 11/04 02:21 Drug: morphine IVP or IV 4 mg IVP once over 4 mins Route: IVP; Infused Over: 4 mins; tm6 Site: right antecubital; 02:21 Drug: Ondansetron IVP 4 mg IVP once; over 2 minutes Route: IVP; Site: right antecubital;tm6 03:23 Drug: Dicyclomine PO 20 mg PO once Route: PO; tm6 03:23 Drug: Ibuprofen PO 800 mg PO once Route: PO; tm6 Disposition: 03:16 Co-signature as Attending Physician, César Douglas MD I agree with the assessment sp4 and plan of care. I reviewed the patient's care provided by Advanced Practice Provider \T\ agree w/ the diagnosis \T\ care plan. I personally saw the pt \T\ performed a substantive portion of the visit, incldng all aspects of the (History/Exam/Medical Decision Making). Disposition Summary: 11/05/23 03:17 Discharge Ordered Notes: Location: Home sp4 Problem: new sp4 Symptoms: have improved sp4 Condition: Stable sp4 Diagnosis - Lower abdominal pain, unspecified sp4 - Other and unspecified ovarian cysts sp4 - Left ovarian cyst sp4 Followup: sp4 - With: Yvonne Murphy MD - When: 7 - 10 days - Reason: Recheck today's complaints Discharge Instructions: - Discharge Summary Sheet sp4 - Ovarian Cyst, [id number] sp4 Forms: - Patient Portal Instructions sp4 - School release form tm6 - Work release form tm6 Prescriptions: - naproxen 500 mg Oral tablet - take 1 tablet ORAL route every 12 hours PRN pain; 30 tablet; Refills: 0, sp4 Product Selection Permitted - Tramadol 50 mg Oral tablet - take 1 tablet ORAL route every 8 hours as needed; 20 tablet; Refills: 0, sp4 Product Selection Permitted - dicyclomine 20 mg Oral tablet - take 1 tablet ORAL route every 6 hours PRN spasmodic abdominal pain; 30 tablet; sp4 Refills: 0, Product Selection Permitted Signatures: Dispatcher [employer] EDChanda Castro, BIBLIOGRAPHIC SERVICES SPECIALIST-C BIBLIOGRAPHIC SERVICES SPECIALIST-Irene Gonzales RN RN vc1 César Douglas MD MD sp4 Vidhya Wade RN RN cm10 Justin Gregory RN RN tm6
--- NOTE | 2023-11-05 03:18 | ER ---
Nurse's Notes [facility] Name: Nica Slater Age: 28 yrs Sex: Female : 1995 Arrival Date: 11/04/2023 Time: 23:13 Bed 6 Private MD: Diagnosis: Lower abdominal pain, unspecified;Other and unspecified ovarian cysts;Left ovarian cyst Presentation: 11/03 23:22 Chief complaint: Patient states: Pelvic and rectal pressure onset 1 week ago. pt states vc1 that she had similar symptoms when she was with her first child. Pt reports taking 2 home tests and they were negative. Pt reports nausea and diarrhea. Coronavirus screen: Client denies travel out of the [place] in the last 14 days. At this time, the client does not indicate any symptoms associated with coronavirus-19. Ebola Screen: Patient denies travel to an Ebola-affected area in the 21 days before illness onset. No symptoms or risks identified at this time. Initial Sepsis Screen: Does the patient meet any 2 criteria? HR > 90 bpm. Does the patient have a suspected source of infection? No. Patient's initial sepsis screen is negative. Risk Assessment: Do you want to hurt yourself or someone else? Patient reports no desire to harm self or others. Onset of symptoms was November 04, 2023. 23:22 Method Of Arrival: Ambulatory vc1 23:22 Acuity: DOROTHY 3 vc1 Triage Assessment: 23:24 General: Appears in no apparent distress. comfortable, Behavior is calm, cooperative. vc1 Historical: - Allergies: 23:24 Tylenol-Codeine; vc1 - PMHx: 23:24 None; vc1 - PSHx: 23:24 umbilical hernia; vc1 - Immunization history:: Adult Immunizations up to date. - Social history:: Smoking status: Reported history of juuling and/or vaping. Screenin:49 [facility] ED Fall Risk Assessment (Adult) History of falling in the last 3 months, tm6 including since admission No falls in past 3 months (0 pts) Confusion or Disorientation No (0 pts) Intoxicated or Sedated No (0 pts) Impaired Gait No (0 pts) Mobility Assist Device Used No (0 pt) Altered Elimination No (0 pt) Score/Fall Risk Level 0 - 2 = Low Risk Oriented to surroundings, Maintained a safe environment. Abuse screen: Denies threats or abuse. Denies injuries from another. Nutritional screening: No deficits noted. Tuberculosis screening: No symptoms or risk factors identified. Assessment: 23:49 General: Appears in no apparent distress. Behavior is calm, cooperative. Pain: tm6 Complains of pain in gluteal cleft and left lower quadrant Pain currently is 8 out of 10 on a pain scale. Quality of pain is described as heavy, Pain began 2-3 days ago. Neuro: Level of Consciousness is awake, alert, obeys commands, Oriented to person, place, time, situation. Cardiovascular: Capillary refill < 3 seconds Patient's skin is warm and dry. Respiratory: Airway is patent Respiratory effort is even, unlabored, Respiratory pattern is regular, symmetrical. GI: Abdomen is round non-distended, Abd is soft Abdomen is tender to palpation in left lower quadrant Reports upper abdominal pain, nausea, rectal pain. : No signs and/or symptoms were reported regarding the genitourinary system. EENT: No signs and/or symptoms were reported regarding the EENT system. Derm: No signs and/or symptoms reported regarding the dermatologic system. Musculoskeletal: No signs and/or symptoms reported regarding the musculoskeletal system. 11/04 01:45 Reassessment: Patient and/or family updated on plan of care and expected duration. Pain tm6 level reassessed. Patient is alert, oriented x 3, equal unlabored respirations, skin warm/dry/pink. 01:56 Reassessment: Patient and/or family updated on plan of care and expected duration. Pain tm6 level reassessed. Patient is alert, oriented x 3, equal unlabored respirations, skin warm/dry/pink. 03:09 Reassessment: Patient and/or family updated on plan of care and expected duration. Pain tm6 level reassessed. Patient is alert, oriented x 3, equal unlabored respirations, skin warm/dry/pink. Patient states symptoms have not improved. 03:30 Reassessment: Patient appears in no apparent distress at this time. Patient and/or tm6 family updated on plan of care and expected duration. Pain level reassessed. Patient is alert, oriented x 3, equal unlabored respirations, skin warm/dry/pink. Vital Signs: 11/03 23:22 BP 145 / 75; Pulse 108; Resp 18; Temp 98.9; Pulse Ox 98% on R/A; Weight 104.33 kg; vc1 Height 5 ft. 6 in. ; Pain 8/10; 23:49 BP 151 / 50; Pulse 86; Pulse Ox 96% on R/A; Pain 8/10; tm6 11/04 01:56 BP 186 / 124; Pulse 83; Pulse Ox 99% on R/A; Pain 8/10; tm6 03:08 BP 139 / 105; Pulse 77; Pulse Ox 98% on R/A; Pain 8/10; tm6 03:30 BP 149 / 93; Pulse 78; Resp 19; Temp 97.5(TE); Pulse Ox 100% on R/A; Pain 6/10; tm6 11/03 23:22 Body Mass Index 37.12 (104.33 kg, 167.64 cm) vc1 11/03 23:22 Pain Scale: Adult vc1 23:49 Pain Scale: Adult tm6 11/04 01:56 Pain Scale: Adult tm6 03:08 Pain Scale: Adult tm6 03:30 Pain Scale: Adult tm6 ED Course: 11/03 23:15 Patient arrived in ED. jj6 23:23 [facility]anda Long FNP-C [facility] kb 23:23 César Douglas MD is Attending Physician. kb 23:24 Triage completed. vc1 23:25 Arm band placed on Patient placed in an exam room, on a stretcher. vc1 23:27 Justin Gregory, RN is Primary Nurse. tm6 23:49 Patient has correct armband on for positive identification. Placed in gown. Bed in low tm6 position. Call light in reach. Side rails up X2. Provided Education on: plan of care. Client placed on continuous cardiac and pulse oximetry monitoring. NIBP monitoring applied. Pulse ox on. NIBP on. Door closed. Noise minimized. Lights dimmed. Warm blanket given. 23:49 Inserted saline lock: 20 gauge in right antecubital area, using aseptic technique. tm6 11/04 02:02 Test, Urine Sent. tm6 02:02 Urinalysis w/ reflexes Sent. tm6 02:36 CT Abd/Pelvis - IV Contrast Only In Process Unspecified. EDMS 03:17 Yvonne Murphy MD is Referral Physician. sp4 03:31 No provider procedures requiring assistance completed. IV discontinued, intact, tm6 bleeding controlled, No redness/swelling at site. Pressure dressing applied. Administered Medications: 11/03 23:48 Drug: NS 0.9% IV 1000 ml IV at 1 bolus Per protocol; 1000 mL bolus Route: IV; Rate: 1 tm6 bolus; Site: right antecubital; 11/04 03:31 Follow up: Response: No adverse reaction; IV Status: Completed infusion; IV Intake: tm6 1000ml 11/03 23:48 Drug: Ondansetron IVP 4 mg IVP once; over 2 minutes Route: IVP; Site: right antecubital;tm6 23:49 Drug: TORadol - Ketorolac IVP 15 mg IVP once Route: IVP; Site: right antecubital; tm6 11/04 02:21 Drug: morphine IVP or IV 4 mg IVP once over 4 mins Route: IVP; Infused Over: 4 mins; tm6 Site: right antecubital; 02:21 Drug: Ondansetron IVP 4 mg IVP once; over 2 minutes Route: IVP; Site: right antecubital;tm6 03:23 Drug: Dicyclomine PO 20 mg PO once Route: PO; tm6 03:23 Drug: Ibuprofen PO 800 mg PO once Route: PO; tm6 Medication: 11/03 23:49 VIS not applicable for this client. tm6 Intake: 11/04 03:31 IV: 1000ml; Total: 1000ml. tm6 Outcome: 03:17 Discharge ordered by . sp4 03:31 Discharged to home ambulatory, with family, tm6 03:31 Condition: stable 03:31 Discharge instructions given to patient, family, Instructed on discharge instructions, follow up and referral plans. medication usage, Demonstrated understanding of instructions, follow-up care, medications, Prescriptions given X 3, 03:31 Patient left the ED. tm6 Signatures: Dispatcher [employer] EDChanda Castro, BETY ANANDP-Marbella Zaragoza jj6 Irene Shankar, RN RN vc1 César Douglas MD MD sp4 Justin Gregory RN RN tm6
[2023-11-05] MEDS ORDERED: IBUPROFEN 400 MG TAB ONE (03:21)
[2023-11-05] MEDS ORDERED: DICYCLOMINE HCL 10 MG CAP ONE (03:21)
[2023-11-05 03:54] VITALS: BP 149/93; TEMP 97.5; O2SAT 100
--- NOTE | 2023-11-05 14:02 | RAD REPORT ---
EXAM DESCRIPTION: Abdomen Pelvis W Contrast CLINICAL HISTORY: ABD PAIN COMPARISON: None Available TECHNIQUE: Contiguous axial images of the abdomen and pelvis were obtained after the administration of intravenous contrast followed by reconstruction images.This exam was performed according to our de partmental dose-optimization program, which includes automated exposure control, adjustment of the mA and/or kV according to patient size and/or use of iterative reconstruction technique. FINDINGS: There is a 2.6 cm cyst within the left adnexa compatible with an ovarian cyst. No further follow-up recommended. There is a small 8.3 mm fatty lesion within the medial aspect of the right kid albert which could represent a small angiomyolipoma. The liver, spleen, pancreas and kidneys are otherwise within normal limits. There is no hydronephrosi s or renal stones. The gallbladder is unremarkable by CT criteria. Adrenal glands are within normal l imits. Aorta is of normal caliber and tapering. There is no free fluid in the abdomen or pelvis. Ther e is no bowel obstruction. There is no stranding of the mesenteric fat to suggest an inflammatory res ponse. The appendix is within normal limits. There is no pericecal inflammation. IMPRESSION: 1. No acute intra-abdominal abnormality. 2. 2.6 cm left ovarian simple-appearing cyst. No follow-up imaging is recommended. Reference: JACR 2019;17(2):[id number] Electronically signed by: Elvis Snyder MD 11/05/2023 03:06 AM CDT Due to temporary technical issues with the PACS/Fluency reporting system, reports are being signed by the in house radiologist without review as a courtesy to ensure prompt reporting. The interpreting r adiologist is fully responsible for the content of the report.
== END 2023-11-05 03:31 | disposition home or self-care (01) ==
LOC: ER 23:13
DX: N83.292 Other ovarian cyst, left side (principal); Z88.5 Allergy status to narcotic agent
CPT/HCPCS: 96361; 81001; 36415; 83690; 80053; 74177; 96375; 96374; 99284; Q9967; J2405; J7030

== ENCOUNTER 2024-09-01 22:07 | Emergency (ER) | payer OTHER, SELFPAY ==
[2024-09-01 22:51] LABS: Specific Gravity > 1.030 (1.005-1.030)
[2024-09-01 22:56] LABS: Specific Gravity > 1.030 (1.005-1.030); Urine Bacteria 20-50 /HPF (<20); Urine Bilirubin NEGATIVE (Negative); Urine Blood Trace (Negative); Urine Clarity Extremely Turbid (Clear); Urine Color Yellow (Yellow); Urine Culture Reflex Order NOT NEEDED; Urine Glucose NEGATIVE (Negative); Urine Ketones NEGATIVE (Negative); Urine Microscopic Reflex YN ORDER UMIC; Urine Mucus 1+ /HPF (None Seen); Urine Nitrite NEGATIVE (Negative); Urine Protein TRACE (Negative); Urine Urobilinogen Normal (Normal)
[2024-09-02 01:20] LABS: Absolute Basophils 0.1 K/uL (0-0.5); Absolute Eosinophils 0.2 K/uL (0-0.5); Absolute Lymphocytes (CBC) 2.7 K/uL (0.7-4.9); Absolute Monocytes 0.7 K/uL (0.1-1.3); Absolute Neutrophil 5.7 K/uL (1.8-8.0); Basophils % 0.7 % (0-1.3); Eosinophils % 1.7 % (0-4.4); Hematocrit 38.2 % (36.0-45.0); Hemoglobin 13.1 g/dL (12.0-15.0); Lymphocytes % 29.5 % (15.3-44.8); MCHC 34.3 g/dL (32.0-36.0); MCV 87.4 fL (80-100); Neutrophils % 61.1 % (41.7-73.7); Nucleated Red Blood Cells % 0.1 % (0-0); Platelets 371 thou/uL (152-406); RBC Red Blood Cell Count 4.36 M/uL (3.86-4.86); Red Cell Distribution Width 12.7 % (12.1-15.2)
[2024-09-02 01:33] LABS: Albumin 3.6 g/dL (3.4-5.0); Albumin/Globulin Ratio 0.8 (1.1-1.8); Anion Gap 11.4 mEq/L (5.0-15.0); Bilirubin Total 0.6 mg/dL (0.2-1.0); Globulin 4.3 g/dL (2.3-3.5); Potassium 3.4 mEq/L (3.5-5.1); Protein, Total 7.9 g/dL (6.4-8.2)
--- NOTE | 2024-09-02 01:38 | ER ---
Nurse's Notes [facility] Name: Nica Slater Age: 29 yrs Sex: Female : 1995 Arrival Date: 09/01/2024 Time: 22:07 Bed 15 Private MD: Diagnosis: UTI/ Urinary tract infection, site not specified Presentation: 09/01 22:28 Chief complaint: Patient states: PT STATES ABDOMINAL PAIN FOR APPROX 22 WEEKS, NAUSEA, br2 CONSTIPATION, LAST BM YESTERDAY. Coronavirus screen: Client denies travel out of the [place] in the last 14 days. Ebola Screen: Patient denies exposure to infectious person. Initial Sepsis Screen: Does the patient meet any 2 criteria? No. Patient's initial sepsis screen is negative. Does the patient have a suspected source of infection? No. Patient's initial sepsis screen is negative. Risk Assessment: Do you want to hurt yourself or someone else? Patient reports no desire to harm self or others. Onset of symptoms was August 18, 2024. 22:28 Method Of Arrival: Ambulatory br2 22:28 Acuity: DOROTHY 3 br2 Historical: - Allergies: 22:31 Tylenol-Codeine; br2 - PSHx: 22:31 Umbilical hernia; br2 - Immunization history:: Adult Immunizations up to date. - Infectious Disease History:: Denies. - Social history:: Smoking status: Reported history of juuling and/or vaping. Patient uses alcohol, but reports only rare drinking. - Family history:: not pertinent. - Hospitalizations: : No recent hospitalization is reported. Screenin:42 [facility] ED Fall Risk Assessment (Adult) History of falling in the last 3 months, ay including since admission No falls in past 3 months (0 pts) Confusion or Disorientation No (0 pts) Intoxicated or Sedated No (0 pts) Impaired Gait No (0 pts) Mobility Assist Device Used No (0 pt) Altered Elimination No (0 pt) Score/Fall Risk Level 0 - 2 = Low Risk Oriented to surroundings, Maintained a safe environment, Educated pt \T\ family on fall prevention, incl call for assistance when getting out of bed. Abuse screen: Denies threats or abuse. Nutritional screening: No deficits noted. Tuberculosis screening: No symptoms or risk factors identified. Assessment: 22:42 General: Appears in no apparent distress. comfortable, Behavior is calm, cooperative. ay Pain: Complains of pain in abdomen Quality of pain is described as crampy, Pain began 3 weeks. Neuro: Level of Consciousness is awake, alert, obeys commands, Oriented to person, place, time, situation, Speech is normal. Cardiovascular: Reports nausea, Denies chest pain, vomiting, Capillary refill < 3 seconds Patient's skin is warm and dry. Respiratory: Airway is patent Respiratory effort is even, unlabored, Respiratory pattern is regular, symmetrical. GI: Bowel sounds present X 4 quads. Abd is soft X 4 quads Abdomen is tender to palpation. : No signs and/or symptoms were reported regarding the genitourinary system. EENT: No signs and/or symptoms were reported regarding the EENT system. Derm: No signs and/or symptoms reported regarding the dermatologic system. Vital Signs: 22:28 BP 171 / 93; Pulse 70; Resp 18; Temp 97.2(TE); Pulse Ox 100% ; Weight 95.25 kg; Height br2 5 ft. 6 in. ; Pain 7/10; 23:20 BP 120 / 50 RA Sitting (auto/lg); Pulse 75; Resp 16; Temp 98.5(O); Pulse Ox 100% on R/A;sa1 09/02 01:30 BP 119 / 73; Pulse 80; Resp 19; Pulse Ox 98% on R/A; ay 09/01 22:28 Body Mass Index 33.89 (95.25 kg, 167.64 cm) br2 09/01 22:28 Pain Scale: Adult br2 [place] Coma Score: 09/01 22:42 Eye Response: spontaneous(4). Motor Response: obeys commands(6). Verbal Response: ay oriented(5). Total: 15. ED Course: 22:14 Patient arrived in ED. gm2 22:15 Yosvany Allison MD is Attending Physician. rn 22:31 Triage completed. br2 22:42 Patient has correct armband on for positive identification. Bed in low position. Call ay light in reach. Side rails up X2. 22:42 Inserted saline lock: 22 gauge in left antecubital area, using aseptic technique. ay 23:44 Lorene Bang, RN is Primary Nurse. ay 09/02 02:04 No provider procedures requiring assistance completed. IV discontinued, intact, ay bleeding controlled, No redness/swelling at site. Pressure dressing applied. Administered Medications: 02:04 Drug: Ciprofloxacin PO 500 mg PO once Route: PO; ay 02:06 Follow up: Response: Medication administered at discharge. ay Outcome: 01:37 Discharge ordered by . rn 02:04 Discharged to home ambulatory, ay 02:04 Condition: stable 02:04 Discharge instructions given to patient, Instructed on discharge instructions, follow up and referral plans. Demonstrated understanding of instructions, follow-up care, medications, Prescriptions given X 1, 02:06 Patient left the ED. ay Signatures: Yosvany Allison MD MD rn Mitchell, Ginger gm2 Sultan Suzy Pretty Ahumada RN RN br2 Lorene Bang RN RN ay
--- NOTE | 2024-09-02 01:38 | EDPHYS ---
Physician Documentation [facility] Name: Nica Slater Age: 29 yrs Sex: Female : 1995 Arrival Date: 09/01/2024 Time: 22:07 Bed 15 Private MD: ED Physician Yosvany Allison HPI: 09/01 22:36 This 29 yrs old Female presents to ER via Ambulatory with complaints of Abdominal rn cramps. 22:36 The patient presents with abdominal pain in the lower abdomen. Onset: The rn symptoms/episode began/occurred 2 week(s) ago. Modifying factors: The symptoms are alleviated by nothing, the symptoms are aggravated by nothing. Severity of pain: At its worst the pain was mild in the emergency department the pain is unchanged. The patient has not experienced similar symptoms in the past. Patient reports mid and lower abdominal cramping, "feels like a period", for 2 weeks, took a test at home and was faintly positive so came for confirmation. No vaginal bleeding or leakage of fluid. No trauma. No fever or chills.. Historical: - Allergies: 22:31 Tylenol-Codeine; br2 - PSHx: 22:31 Umbilical hernia; br2 - Immunization history:: Adult Immunizations up to date. - Infectious Disease History:: Denies. - Social history:: Smoking status: Reported history of juuling and/or vaping. Patient uses alcohol, but reports only rare drinking. - Family history:: not pertinent. - Hospitalizations: : No recent hospitalization is reported. ROS: 22:36 Constitutional: Negative for fever, chills, and weight loss, Cardiovascular: Negative rn for chest pain, palpitations, and edema, Respiratory: Negative for shortness of breath, cough, wheezing, and pleuritic chest pain, Abdomen/GI: Positive for abdominal cramping : Negative for injury, bleeding, discharge, and swelling, MS/Extremity: Negative for injury and deformity, Skin: Negative for injury, rash, and discoloration, Neuro: Negative for headache, weakness, numbness, tingling, and seizure, Exam: 22:36 Constitutional: This is a well developed, well nourished patient who is awake, alert, rn and in no acute distress. Head/Face: Normocephalic, atraumatic. Cardiovascular: Regular rate and rhythm. No pulse deficits. Respiratory: No increased work of breathing, no retractions or nasal flaring. Abdomen/GI: Soft, non-tender, no peritoneal signs or masses, no distention MS/ Extremity: Pulses equal, no cyanosis. Neuro: Awake and alert, GCS 15 Vital Signs: 22:28 BP 171 / 93; Pulse 70; Resp 18; Temp 97.2(TE); Pulse Ox 100% ; Weight 95.25 kg; Height br2 5 ft. 6 in. ; Pain 7/10; 23:20 BP 120 / 50 RA Sitting (auto/lg); Pulse 75; Resp 16; Temp 98.5(O); Pulse Ox 100% on R/A;sa1 09/02 01:30 BP 119 / 73; Pulse 80; Resp 19; Pulse Ox 98% on R/A; ay 09/01 22:28 Body Mass Index 33.89 (95.25 kg, 167.64 cm) br2 09/01 22:28 Pain Scale: Adult br2 [place] Coma Score: 09/01 22:42 Eye Response: spontaneous(4). Motor Response: obeys commands(6). Verbal Response: ay oriented(5). Total: 15. MDM: 22:15 Medical Screening Exam initiated rn 09/02 01:36 Differential diagnosis: gastroesophageal reflux disease, non-specific abd pain, rn pancreatitis, urinary tract infection. Data reviewed: vital signs, nurses notes, lab test result(s), and as a result, I will discharge patient. Counseling: I had a detailed discussion with the patient and/or guardian regarding the historical points, exam findings, and any diagnostic results supporting the discharge/admit diagnosis, lab results, the need for outpatient follow up, to return to the emergency department if symptoms worsen or persist or if there are any questions or concerns that arise at home. Special discussion: I discussed with the patient/guardian in detail that at this point there is no indication for admission to the hospital. It is understood, however, that if the symptoms persist or worsen the patient needs to return immediately for re-evaluation. ED course: Urine and serum test both negative. Normal WBC. Normal lipase and LFTs. Urine shows possible UTI. Repeat abdominal exam is benign without focal tenderness or peritoneal signs. Will discharge home with antibiotics and return precautions.. 09/01 22:19 Order name: CBC with Diff; Complete Time: rn 09/01 22:19 Order name: CMP; Complete Time: rn 09/01 22:19 Order name: Lipase; Complete Time: rn 09/01 22:19 Order name: Test, Urine; Complete Time: 23: rn 09/01 22:19 Order name: Urinalysis w/ reflexes; Complete Time: 23: rn 09/01 23:01 Order name: Test, Serum; Complete Time: rn 09/01 22:19 Order name: IV Saline Lock; Complete Time: rn 09/01 22:19 Order name: Labs collected and sent; Complete Time: rn Administered Medications: 02:04 Drug: Ciprofloxacin PO 500 mg PO once Route: PO; ay 02:06 Follow up: Response: Medication administered at discharge. ay Disposition Summary: 09/02/24 01:37 Discharge Ordered Notes: Location: Home rn Problem: new rn Symptoms: have improved rn Condition: Stable rn Diagnosis - UTI/ Urinary tract infection, site not specified rn Followup: rn - With: Private Physician - When: As needed - Reason: Recheck today's complaints, Re-evaluation by your physician Discharge Instructions: - Discharge Summary Sheet rn - Urinary Tract Infection, Adult rn Forms: - Medication Reconciliation Form rn - Antibiotic harness inspector - Prescription Opioid Use rn - Patient Portal Instructions rn - Leadership Thank You Letter rn Prescriptions: - Cipro 500 mg Oral Tablet - take 1 tablet ORAL route every 12 hours for 7 days; 14 tablet; Refills: 0, rn Product Selection Permitted Signatures: Dispatcher [employer] EDMS Yosvany Allison MD MD rn Riddle, Belinda RN RN br2 Lorene Bang, RN RN ay Corrections: (The following items were deleted from the chart) 09/01 22:20 22:20 CBC+H.LAB.BRZ ordered. EDMS EDMS 22:20 22:20 COMPREHENSIVE METABOLIC PANEL+C.LAB.BRZ ordered. EDMS EDMS 22:20 22:20 LIPASE+C.LAB.BRZ ordered. EDMS EDMS 22:20 22:20 Test, Urine+UC.LAB.BRZ ordered. EDMS EDMS 22:20 22:20 Urinalysis+U.LAB.BRZ ordered. EDMS EDMS
[2024-09-02] MEDS ORDERED: CIPROFLOXACIN HCL 500 MG TAB ONE (01:56)
[2024-09-02 05:51] VITALS: O2SAT 100
[2024-09-02 05:53] VITALS: BP 120/50; TEMP 98.5
== END 2024-09-02 02:06 | disposition home or self-care (01) ==
LOC: ER 22:07
DX: N39.0 Urinary tract infection, site not specified (principal)
CPT/HCPCS: 36415; 80053; 81001; 81025; 83690; 84703; 85025; 99284